=== PATIENT | female | born 2000 | race Caucasian/White ===

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

== ENCOUNTER 2021-04-18 19:59 | Emergency (ER) | payer OTHER ==
[~2021-04-18] VITALS: Ht 160 cm; Wt 67.1 kg
[~2021-04-18 19:59] MED LIST changes: +DESYREL150 MG PO; +FLEXERIL PO; +HYDROXYZINE HCL25 M2 PO; +IBUPROFEN 800800 M1 PO; +LITHATE5 MG PO; +ZYPREXA2.5 MG PO
[2021-04-18 20:31] LABS: EOSINOPHILS 0.4 %; NUCLEATED RBCS 0 /100WBC
[2021-04-18 20:32] LABS: ABSOLUTE BASOPHILS 0.1 thou/uL (0.0-0.2); ABSOLUTE LYMPHOCYTES 2.6 thou/uL (0.8-5.3); ABSOLUTE MONOCYTES 0.6 thou/uL (0.0-1.2); ABSOLUTE NEUTROPHILS 6.6 thou/uL (1.6-8.1); BASOPHILS 0.6 %; HEMATOCRIT 39.2 % (37.0-47.0); HEMOGLOBIN 13.6 gm/dL (12.0-15.0); LYMPHOCYTES 26.4 %; MCHC 34.6 g/dL (28.0-37.0); MCV 89.6 fL (80.0-100.0); MONOCYTES 6.2 %; MPV 9.6 fl. (7.2-11.1); PLATELET COUNT* 233 thou/uL (150-400); POLYS 66.4 %; RBC 4.38 mil/uL (4.20-5.00); WBC 9.9 thou/uL (4.0-11.0)
[2021-04-18 20:37] LABS: URINE BILIRUBIN NEGATIVE (Negative); URINE BLOOD NEGATIVE (Negative); URINE COLOR YELLOW; URINE GLUCOSE-RANDOM NEGATIVE (Negative); URINE LEUKOCYTES-REFLEX NEGATIVE (Negative); URINE NITRITE-REFLEX NEGATIVE (Negative); URINE PROTEIN NEGATIVE (Negative); URINE SPECIFIC GRAVITY 1.025 (1.005-1.030)
[2021-04-18 20:39] LABS: URINE CLARITY CLOUDY; URINE KETONES 3+ (Negative)
[2021-04-18 20:40] LABS: CREATININE 0.5 mg/dL (0.6-1.3)
[2021-04-18 20:42] LABS: MUCUS 0-3 Light strn/LPF (None Seen); SQUAMOUS >10 Many /LPF (0-3)
[2021-04-18 20:43] LABS: AMORPHOUS PHOSPHATES Many /LPF (None Seen); BACTERIA-REFLEX 1-9 Few /HPF (None Seen); CASTS None Seen /LPF (None Seen); URINE RBC None Seen /HPF (0-2); URINE WBC-REFLEX 0-5 Rare /HPF (0-5)
[2021-04-18 20:44] LABS: ALBUMIN 4.1 g/dL (3.4-5.0); TOTAL BILIRUBIN 0.6 mg/dL (<0.1-1.0); TOTAL PROTEIN 7.6 g/dL (6.4-8.2)
[2021-04-18 20:44] LABS: AMP/METHAMP Negative (Negative); BARBITURATES Negative (Negative); BENZODIAZEPINES Negative (Negative); COCAINE Negative (Negative); METHADONE Negative (Negative); OPIATES Negative (Negative); PCP Negative (Negative); THC POSITIVE (Negative)
[2021-04-18 20:50] LABS: SALICYLATE < 2.8 mg/dL (2.8-20.0)
[2021-04-18 20:51] LABS: ACETAMINOPHEN < 2 ug/mL (10-30); ALCOHOL < 10 mg/dL (<10)
[2021-04-19 01:19] VITALS: BP 122/73
== END 2021-04-19 01:19 | disposition still patient (30) ==
LOC: M.ERS 19:59
PROVIDERS: Emergency Medicine
DX: S51.812A Laceration without foreign body of left forearm, initial encounter (principal); Z20.822 Contact with and (suspected) exposure to COVID-19; S70.312A Abrasion, left thigh, initial encounter; S70.311A Abrasion, right thigh, initial encounter; R45.851 Suicidal ideations; Z79.899 Other long term (current) drug therapy; X78.8XXA Intentional self-harm by other sharp object, initial encounter; Y93.89 Activity, other specified; Y92.89 Other specified places as the place of occurrence of the external cause; Y99.9 Unspecified external cause status